=== PATIENT | female | born 1995 | race Two or more races ===

== ENCOUNTER 2020-09-09 17:40 | Observation (INO) | payer MEDICAID, OTHER ==
[~2020-09-09] VITALS: Ht 165.1 cm; Wt 72.1 kg
[2020-09-09] MEDS ORDERED: BETAMETHASONE ACET (6MG/ML) 5ML VIAL IM ONE (18:00)
[2020-09-09] MEDS ORDERED: NIF10C PO (19:22)
[2020-09-09] MEDS ORDERED: PROG1CAP2 PV (19:24)
[2020-09-09] MEDS ORDERED: PREN-96 PO (19:24)
== END 2020-09-09 19:32 | disposition home or self-care (01) ==
LOC: LDRP 17:40
PROVIDERS: ADMIT Specialist; ATTEND Specialist
DX: O26.872 Cervical shortening, second trimester (principal); O60.02 Preterm labor without delivery, second trimester; Z3A.26 26 weeks gestation of pregnancy
CPT/HCPCS: 59025; 81002; 96372; G0378; J0702

== ENCOUNTER 2020-09-10 18:30 | Observation (INO) | payer MEDICAID ==
[~2020-09-10 18:30] MED LIST: NIF10C PO; PREN-96 PO; PROG1CAP2 PV
[2020-09-10] MEDS ORDERED: BETAMETHASONE ACET (6MG/ML) 5ML VIAL IM SCH (18:45)
== END 2020-09-10 19:33 | disposition home or self-care (01) ==
LOC: LDRP 18:30
PROVIDERS: ADMIT Obstetrics & Gynecology; ATTEND Obstetrics & Gynecology
DX: O60.02 Preterm labor without delivery, second trimester (principal); O26.872 Cervical shortening, second trimester; O26.892 Other specified pregnancy related conditions, second trimester; R51.9 Headache, unspecified; Z3A.26 26 weeks gestation of pregnancy
CPT/HCPCS: 59025; 81002; 94760; 96372; G0378

== ENCOUNTER 2020-09-13 11:18 | Observation (INO) | payer MEDICAID | END 2020-09-13 13:36 | disposition home or self-care (01) | LOC: LDRP 11:18 | PROVIDERS: ADMIT Specialist; ATTEND Specialist | DX: O26.872 Cervical shortening, second trimester (principal); O60.02 Preterm labor without delivery, second trimester; Z3A.27 27 weeks gestation of pregnancy | CPT/HCPCS: 59025; 76815; 81002; 94760; G0378 ==

== ENCOUNTER 2020-09-17 10:35 | Observation (INO) | payer MEDICAID | END 2020-09-17 13:52 | disposition home or self-care (01) | LOC: LDRP 10:35 | PROVIDERS: ADMIT Specialist; ATTEND Specialist | DX: O26.873 Cervical shortening, third trimester (principal); O60.02 Preterm labor without delivery, second trimester; Z3A.27 27 weeks gestation of pregnancy | CPT/HCPCS: 59025; 76817; 76818; 81002; G0378 ==

== ENCOUNTER 2020-09-24 08:49 | Observation (INO) | payer MEDICAID ==
[~2020-09-24] VITALS: Ht 165.1 cm; Wt 72.1 kg
== END 2020-09-24 13:10 | disposition home or self-care (01) ==
LOC: LDRP 11:14
PROVIDERS: ADMIT Obstetrics & Gynecology; ATTEND Obstetrics & Gynecology
DX: O60.03 Preterm labor without delivery, third trimester (principal); O26.873 Cervical shortening, third trimester; Z3A.28 28 weeks gestation of pregnancy
CPT/HCPCS: 59025; 76817; 76818; 81002; G0378

== ENCOUNTER 2020-10-01 10:13 | Observation (INO) | payer MEDICAID | END 2020-10-01 12:50 | disposition home or self-care (01) | LOC: LDRP 10:13 | PROVIDERS: ADMIT Obstetrics & Gynecology; ATTEND Obstetrics & Gynecology | DX: O60.03 Preterm labor without delivery, third trimester (principal); Z3A.29 29 weeks gestation of pregnancy | CPT/HCPCS: 59025; 76817; 76818; 81002; G0378 ==

== ENCOUNTER 2020-10-08 10:43 | Observation (INO) | payer MEDICAID | END 2020-10-08 12:29 | disposition home or self-care (01) | LOC: LDRP 10:43 | PROVIDERS: ADMIT Specialist; ATTEND Specialist | DX: O60.03 Preterm labor without delivery, third trimester (principal); Z3A.30 30 weeks gestation of pregnancy | CPT/HCPCS: 59025; 76818; 81002; G0378 ==

== ENCOUNTER 2020-10-15 11:10 | Observation (INO) | payer SELFPAY | END 2020-10-15 13:15 | disposition home or self-care (01) | LOC: LDRP 11:10 | PROVIDERS: ADMIT Obstetrics & Gynecology; ATTEND Obstetrics & Gynecology | DX: O60.03 Preterm labor without delivery, third trimester (principal); O26.873 Cervical shortening, third trimester; Z3A.31 31 weeks gestation of pregnancy | CPT/HCPCS: 59025; 76818; 81002; G0378 ==

== ENCOUNTER 2020-10-22 09:36 | Observation (INO) | payer MEDICAID | END 2020-10-22 10:45 | disposition home or self-care (01) | LOC: LDRP 09:36 | PROVIDERS: ADMIT Specialist; ATTEND Specialist | DX: O60.03 Preterm labor without delivery, third trimester (principal); Z3A.32 32 weeks gestation of pregnancy | CPT/HCPCS: 59025; 76818; 81002; G0378 ==

== ENCOUNTER 2020-10-23 23:51 | Observation (INO) | payer MEDICAID ==
[~2020-10-23] VITALS: Ht 165.1 cm; Wt 65.8 kg
[2020-10-24] MEDS ORDERED: TERBUTALINE SULFATE 1 MG/ML 1ML VIAL SC ONE (01:15)
== END 2020-10-24 04:25 | disposition home or self-care (01) ==
LOC: LDRP 23:51
PROVIDERS: ADMIT Specialist; ATTEND Specialist
DX: O26.893 Other specified pregnancy related conditions, third trimester (principal); R10.31 Right lower quadrant pain; R89.8 Other abnormal findings in specimens from other organs, systems and tissues; O09.213 Supervision of pregnancy with history of pre-term labor, third trimester; Z3A.33 33 weeks gestation of pregnancy
CPT/HCPCS: 59025; 76818; 81002; 94760; 96372; G0378; J3105

== ENCOUNTER 2020-10-29 09:15 | Observation (INO) | payer SELFPAY | END 2020-10-29 12:28 | disposition home or self-care (01) | LOC: LDRP 09:15 | PROVIDERS: ADMIT Obstetrics & Gynecology; ATTEND Obstetrics & Gynecology | DX: O60.03 Preterm labor without delivery, third trimester (principal); Z3A.33 33 weeks gestation of pregnancy | CPT/HCPCS: 59025; 76818; 81002; 94760; G0378 ==

== ENCOUNTER 2020-11-12 09:11 | Observation (INO) | payer MEDICAID | END 2020-11-12 11:28 | disposition home or self-care (01) | LOC: LDRP 09:11 | PROVIDERS: ADMIT Obstetrics & Gynecology; ATTEND Obstetrics & Gynecology | DX: O60.03 Preterm labor without delivery, third trimester (principal); Z3A.35 35 weeks gestation of pregnancy | CPT/HCPCS: 59025; 76817; 76818; 81002; G0378 ==

== ENCOUNTER 2020-11-14 09:57 | Observation (INO) | payer MEDICAID ==
[~2020-11-14] VITALS: Ht 167.6 cm; Wt 73.5 kg
[2020-11-14] MEDS ORDERED: TERBUTALINE SULFATE 1 MG/ML 1ML VIAL SC ONE (11:30)
[2020-11-14] MEDS ORDERED: LACTATED RINGER'S 1,000 ML IV ONE ×2 (11:30→14:15)
[2020-11-14] MEDS ORDERED: BETAMETHASONE ACET (6MG/ML) 5ML VIAL IM ONE (12:45)
[2020-11-14] MEDS ORDERED: NIFEdipine 10 MG CAP PO ONE (13:45)
[2020-11-14] MEDS ORDERED: cefTRIAXone 1GM/50ML D5W 50 ML IV ONE (17:15)
[2020-11-14 18:25] LABS: Basophils # (auto) 0 10 ^3/uL (0-0.2); Basophils % (auto) 0.2 % (0.0-2.0); Eosinophils # (auto) 0 10 ^3/uL (0-0.8); Eosinophils % (auto) 0.1 % (0.0-7.0); Hematocrit 30.5 % (36.0-46.0); Hemoglobin 10.6 g/dL (12.2-16.2); Lymphocytes # (auto) 0.6 10 ^3/uL (0.4-5.4); Lymphocytes % (auto) 3.7 % (10.0-50.0); Mean Corpuscular Hemoglobin 29.4 pg (28.0-32.0); Mean Corpuscular Hgb Conc. 34.8 g/dL (32.0-36.0); Mean Corpuscular Volume 84.5 fL (80.0-100.0); Monocytes # (auto) 0.5 10 ^3/uL (0-1.3); Monocytes % (auto) 3.1 % (0.0-12.0); Neutrophils % (auto) 92.9 % (37.0-80.0); Platelet Count (auto) 249 10^3/uL (140-450); Red Blood Cells 3.61 10^6/uL (4.0-5.20); Red Cell Distribution Width 13.4 % (11.8-14.3); White Blood Cell 15.1 10^3/uL (4.4-10.8)
[2020-11-14 18:37] LABS: Alcohol, Urine < 3.0 mg/dL (0-10); Amphetamine Screen, Urine NEGATIVE (NEGATIVE); Barbiturate Scree,Urine NEGATIVE (NEGATIVE); Benzodiazephine Screen, Urine NEGATIVE (NEGATIVE); Cannabinoid Screen, Urine NEGATIVE (NEGATIVE); Cocaine Screen, Urine NEGATIVE (NEGATIVE); Opiate Scree,Urine NEGATIVE (NEGATIVE); Phencyclidine Screen, Urine NEGATIVE (NEGATIVE)
[2020-11-14] MEDS: NIFEdipine 10 MG CAP PO SCH ×2 (18:47→22:49)
[2020-11-14 18:56] LABS: Urine Bacteria FEW /hpf (None Seen); Urine Blood 1+ /uL (Negative); Urine Mucus FEW (None Seen); Urine Specific Gravity 1.011 (1.001-1.035); Urine WBC 89 /hpf (0 - 5)
[2020-11-14 19:30] LABS: Albumin 2.1 g/dL (3.4-5.0); Calcium 7.7 mg/dL (8.5-10.1); Potassium 3.5 mmol/L (3.5-5.1)
[2020-11-14 19:34] LABS: BUN/Creatinine Ratio 8.9; Bilirubin, Total 0.9 mg/dL (0.2-1.0); Total Protein 7.2 g/dL (6.4-8.2)
== END 2020-11-14 23:25 | disposition home or self-care (01) ==
LOC: LDRP 09:57
PROVIDERS: ADMIT Specialist; ATTEND Specialist
DX: O60.03 Preterm labor without delivery, third trimester (principal); Z3A.36 36 weeks gestation of pregnancy; Z79.899 Other long term (current) drug therapy
CPT/HCPCS: 36415; 59025; 76805; 76817; 76818; 80053; 80307; 81001; 81002; 85025; 85049; 87086; 87088; 87186; 96361; 96365; 96366; 96372; G0378; J0696; J0702; J3105; J7050; 96360

== ENCOUNTER 2020-11-29 06:37 | Inpatient (IN) | payer MEDICAID ==
[~2020-11-29] VITALS: Ht 167.6 cm; Wt 75.7 kg
[2020-11-29] MEDS ORDERED: DERMOPLAST 60ML BOTTLE TOP PRN (07:15)
[2020-11-29] MEDS ORDERED: PHISODERM TOP SOLN 240ML BTL TOP PRN (07:15)
[2020-11-29] MEDS ORDERED: BUTORPHANOL TARTRATE 2 MG/1 ML VIAL IV PRN ×2 (07:15)
[2020-11-29] MEDS ORDERED: WITCH HAZEL-GLYCERIN PAD TOP PRN (07:15)
[2020-11-29] MEDS ORDERED: LIDOCAINE 2%HCL (LOCAL ANESTH.) INJ 20ML MDV IJ PRN (07:15)
[2020-11-29] MEDS ORDERED: PROMETHAZINE HCL 25 MG/ML 1ML IV PRN (07:15)
[2020-11-29] MEDS ORDERED: LACT. RINGERS/OXYTOCIN 20UNITS 500 ML IV ONE ×2 (07:45→08:15)
[2020-11-29] MEDS: LACTATED RINGER'S 1,000 ML IV SCH ×3 (07:49→23:15)
[2020-11-29] MEDS: ceFAZolin 1GM/50ML 50 ML IV SCH ×2 (07:50→15:47)
[2020-11-29 07:52] LABS: Basophils # (auto) 0.1 10 ^3/uL (0-0.2); Basophils % (auto) 0.8 % (0.0-2.0); Eosinophils # (auto) 0 10 ^3/uL (0-0.8); Eosinophils % (auto) 0.5 % (0.0-7.0); Hematocrit 32.8 % (36.0-46.0); Hemoglobin 11.1 g/dL (12.2-16.2); Lymphocytes # (auto) 1.5 10 ^3/uL (0.4-5.4); Lymphocytes % (auto) 15.5 % (10.0-50.0); Mean Corpuscular Hemoglobin 28.7 pg (28.0-32.0); Mean Corpuscular Hgb Conc. 33.9 g/dL (32.0-36.0); Mean Corpuscular Volume 84.7 fL (80.0-100.0); Monocytes # (auto) 0.6 10 ^3/uL (0-1.3); Monocytes % (auto) 5.6 % (0.0-12.0); Neutrophils # (auto) 7.8 10 ^3/uL (1.6-8.6); Neutrophils % (auto) 77.6 % (37.0-80.0); Red Blood Cells 3.88 10^6/uL (4.0-5.20); Red Cell Distribution Width 13.6 % (11.8-14.3)
[2020-11-29 08:03] LABS: Urine Bacteria MANY /hpf (None Seen); Urine Blood TRACE /uL (Negative); Urine Mucus FEW (None Seen); Urine Specific Gravity 1.016 (1.001-1.035); Urine WBC 246 /hpf (0 - 5)
[2020-11-29 08:07] LABS: INR 1.02 (0.9-1.15)
[2020-11-29 08:10] LABS: Albumin 2.6 g/dL (3.4-5.0); Calcium 8.7 mg/dL (8.5-10.1); Potassium 3.8 mmol/L (3.5-5.1)
[2020-11-29 08:12] LABS: Alcohol, Urine < 3.0 mg/dL (0-10); Amphetamine Screen, Urine NEGATIVE (NEGATIVE); Barbiturate Scree,Urine NEGATIVE (NEGATIVE); Benzodiazephine Screen, Urine NEGATIVE (NEGATIVE); Cannabinoid Screen, Urine NEGATIVE (NEGATIVE); Cocaine Screen, Urine NEGATIVE (NEGATIVE); Opiate Scree,Urine NEGATIVE (NEGATIVE); Phencyclidine Screen, Urine NEGATIVE (NEGATIVE)
[2020-11-29 08:13] LABS: Bilirubin, Total 0.6 mg/dL (0.2-1.0); Total Protein 6.9 g/dL (6.4-8.2)
[2020-11-29] MEDS ORDERED: METHYLERGONOVINE MALEATE 0.2 MG/ML AMP IM PRN (08:30)
[2020-11-29] MEDS ORDERED: NALOXONE HCL 0.4 MG/ML VIAL IV ONE (09:00)
[2020-11-29] MEDS ORDERED: ePHEDrine SULFATE 50 MG/ML AMP IV ONE ×2 (09:00→09:15)
[2020-11-29] MEDS ORDERED: ROPIVACAINE HCL 200 ML EPI SCH (09:00)
[2020-11-29] MEDS ORDERED: fentaNYL CITRATE 100 MCG/2 ML VL IV ONE (09:00)
[2020-11-29] MEDS ORDERED: LACTATED RINGER'S 1,000 ML IV ONE (09:00)
[2020-11-29] MEDS ORDERED: LIDOCAINE HCL 2 %PF INJ 10ML AMP IJ ONE ×2 (09:00→09:11)
[2020-11-29] MEDS ORDERED: ePHEDrine SULFATE 50 MG/ML AMP ONE (09:01)
[2020-11-29] MEDS ORDERED: fentaNYL CITRATE 100 MCG/2 ML VL EPI ONE (09:14)
[2020-11-29] MEDS ORDERED: LACT. RINGERS/OXYTOCIN 20UNITS 1,000 ML IV SCH (10:45)
[2020-11-29] MEDS ORDERED: TERBUTALINE SULFATE 1 MG/ML 1ML VIAL SC PRN ×2 (10:45→11:00)
[2020-11-29] MEDS ORDERED: miSOPROStol 100 mcg TAB PR ONE (15:00)
[2020-11-29] MEDS ORDERED: miSOPROStol 100 mcg TAB SL ONE (15:00)
[2020-11-29] MEDS ORDERED: ONDANSETRON HCL 4 MG/2 ML VIAL IV PRN (16:15)
[2020-11-29] MEDS ORDERED: DIPHENOXYLATE W/ATROPINE 2.5 MG TAB PO PRN (16:15)
[2020-11-29] MEDS: IBUPROFEN 600 MG TAB PO PRN ×2 (17:07→21:55)
[2020-11-29] MEDS ORDERED: LACT. RINGERS/OXYTOCIN 20UNITS 1,000 ML IV ONE (18:15)
[2020-11-29 18:30] VITALS: BP 112/57
[2020-11-29 22:43] VITALS: BP 98/56
[2020-11-30] MEDS: ceFAZolin 1GM/50ML 50 ML IV SCH ×3 (00:15→16:00)
[2020-11-30] MEDS: IBUPROFEN 600 MG TAB PO PRN ×6 (01:00→20:02)
[2020-11-30 02:38] VITALS: BP 95/57
[2020-11-30] MEDS ORDERED: TETANUS-DIPTH-ACEL PERTUSSIS 0.5ML SYR Tdap IM ONE (02:45)
[2020-11-30 05:07] LABS: RPR Non Reactive (Non Reactive)
[2020-11-30 06:59] VITALS: BP 92/53
[2020-11-30] MEDS: LACTATED RINGER'S 1,000 ML IV SCH (07:15)
[2020-11-30] MEDS ORDERED: DOCUSATE CALCIUM 240 MG CAP PO SCH (10:00)
[2020-11-30 11:09] VITALS: BP 101/56
[2020-11-30 14:39] VITALS: BP 96/51
[2020-11-30 18:45] VITALS: BP 110/64
[2020-11-30 23:15] VITALS: BP 98/52
[2020-12-01] MEDS: ceFAZolin 1GM/50ML 50 ML IV SCH (00:49)
[2020-12-01] MEDS: IBUPROFEN 600 MG TAB PO PRN ×2 (02:58→07:05)
[2020-12-01 03:00] VITALS: BP 95/57
[2020-12-01 07:00] VITALS: BP 102/66
== END 2020-12-01 09:22 | disposition home or self-care (01) | DRG 560 ==
LOC: UNDOADMOB 06:37 → LDRP 06:37 → INTOOBSV 07:08 → OBSVTOIN 07:08
PROVIDERS: ADMIT Obstetrics & Gynecology; ATTEND Obstetrics & Gynecology
PROC: 10E0XZZ Delivery of Products of Conception, External Approach (ICD-10-PCS; principal; 2020-11-29)
PROC: 3E0R3BZ Introduction of Anesthetic Agent into Spinal Canal, Percutaneous Approach (ICD-10-PCS; 2020-11-29)
PROC: 00HU33Z Insertion of Infusion Device into Spinal Canal, Percutaneous Approach (ICD-10-PCS; 2020-11-29)
PROC: 0KQM0ZZ Repair Perineum Muscle, Open Approach (ICD-10-PCS; 2020-11-29)
DX: O70.1 Second degree perineal laceration during delivery (principal); Z20.822 Contact with and (suspected) exposure to COVID-19; Z3A.38 38 weeks gestation of pregnancy; Z37.0 Single live birth
CPT/HCPCS: 36415; 59025; 59409; 62282; 80053; 80307; 81001; 81002; 84112; 85025; 85610; 85730; 86592; 86762; 86850; 86900; 86901; 87426; 90715; 94760; 96360; 96361; 96365; 96366; G0378; J0690; J2590

== ENCOUNTER 2021-01-22 20:36 | Emergency (ER) | payer MEDICAID ==
[~2021-01-22] VITALS: Ht 165.1 cm; Wt 72.6 kg
[2021-01-22 20:36] VITALS: BP 96/69
[~2021-01-22 20:36] MED LIST changes: -NIF10C PO; -PROG1CAP2 PV
[2021-01-22] MEDS ORDERED: IBUPROFEN 600 MG TAB PO ONE (21:15)
[2021-01-22] MEDS ORDERED: ACETAMINOPHEN 500 MG TAB PO ONE (21:15)
[2021-01-22 21:34] LABS: Urine Bacteria MANY /hpf (None Seen); Urine Blood TRACE /uL (Negative); Urine Mucus FEW (None Seen); Urine Specific Gravity 1.019 (1.001-1.035); Urine WBC 205 /hpf (0 - 5)
[2021-01-22] MEDS ORDERED: SODIUM CHLORIDE 0.9% 1,000 ML IV ONE (22:45)
[2021-01-22] MEDS ORDERED: cefTRIAXone 1GM/50ML D5W 50 ML IV ONE (22:45)
[2021-01-22 23:16] LABS: Basophils # (auto) 0 10 ^3/uL (0-0.2); Basophils % (auto) 0.3 % (0.0-2.0); Eosinophils # (auto) 0 10 ^3/uL (0-0.8); Hematocrit 34.8 % (36.0-46.0); Hemoglobin 11.5 g/dL (12.2-16.2); Lymphocytes # (auto) 0.4 10 ^3/uL (0.4-5.4); Lymphocytes % (auto) 3.2 % (10.0-50.0); Mean Corpuscular Hgb Conc. 33.1 g/dL (32.0-36.0); Mean Corpuscular Volume 81.6 fL (80.0-100.0); Monocytes # (auto) 0.5 10 ^3/uL (0-1.3); Monocytes % (auto) 3.9 % (0.0-12.0); Neutrophils # (auto) 12.7 10 ^3/uL (1.6-8.6); Neutrophils % (auto) 92.6 % (37.0-80.0); Red Blood Cells 4.26 10^6/uL (4.0-5.20); Red Cell Distribution Width 14.6 % (11.8-14.3); White Blood Cell 13.7 10^3/uL (4.4-10.8)
[2021-01-22 23:29] LABS: Potassium 3.3 mmol/L (3.5-5.1)
[2021-01-22 23:36] LABS: Albumin 3.5 g/dL (3.4-5.0); Bilirubin, Total 0.9 mg/dL (0.2-1.0); Calcium 8.1 mg/dL (8.5-10.1); Total Protein 7.6 g/dL (6.4-8.2)
[2021-01-23] MEDS ORDERED: SODIUM CHLORIDE 0.9% 1,000 ML IV ONE (01:15)
== END 2021-01-23 01:45 | disposition left against medical advice (07) ==
LOC: ER 20:37
DX: N12 Tubulo-interstitial nephritis, not specified as acute or chronic (principal); R51.9 Headache, unspecified; R42 Dizziness and giddiness; Z79.899 Other long term (current) drug therapy
CPT/HCPCS: 36415; 80053; 81001; 81025; 82150; 83605; 83690; 85025; 87040; 96361; 96365; 99284; J0696; J7030